=== PATIENT | female | born 1965 | race Two or more races ===

== ENCOUNTER 2019-12-23 08:44 | Emergency (ER) | payer OTHER ==
[2019-12-23] MEDS ORDERED: ONDANSETRON 4 MG/2 ML VIAL IVPUSH ONE (08:46)
[2019-12-23] MEDS ORDERED: SODIUM CHLORIDE 1,000 ML IV STA (08:46)
--- NOTE | 2019-12-23 08:49 | PDOC ---
Rapid Medical Evaluation Time Seen by Provider: 12/23/19 08:44 Medical Evaluation: Allergies Allergy/AdvReac Type Severity Reaction Status Date / Time No Known Allergies Allergy Verified 12/23/19 08:46 12/23/19 08:47 CC: weak yesterday, nausea this am followed by dizziness, also c/o tingling in toes, hx hyperparathyroidism, pending sx 02/08, no other complaints Exam: vss Plan: labs, urine, ivf , zofran Discharge Disposition - Diagnosis Dizziness - Referrals - Patient Instructions - Post Discharge Activity
[2019-12-23 08:58] VITALS: BP 153/69; PULSE 61; TEMP 98.3; BMI 23.7
[2019-12-23 09:39] LABS: BASO % 1.1 % (0-2.0); EOS % 2.2 % (0-4.5); HEMATOCRIT 35.1 % (32.4-45.2); HEMOGLOBIN 11.6 GM/dL (10.7-15.3); LYMPH % 35.8 % (8-40); MCH 26.6 pg (25.7-33.7); MCHC 32.9 g/dl (32.0-36.0); MEAN CELL VOLUME 80.8 fl (80-96); MEAN PLT VOLUME 8.8 fl (7.5-11.1); NEUT % 51.9 % (42.8-82.8); PLATELET COUNT 250 K/MM3 (134-434); RBC 4.35 M/mm3 (3.60-5.2); RDW 14.8 % (11.6-15.6); WHITE BLOOD COUNT 5.2 K/mm3 (4.0-10.0)
--- NOTE | 2019-12-23 09:49 | PDOC ---
History of Present Illness - General Chief Complaint: Lightheaded Stated Complaint: LIGHTHEADED Time Seen by Provider: 12/23/19 08:44 History Source: Patient, Old Records Exam Limitations: No Limitations - History of Present Illness Initial Comments: 12/23/19 09:43 Norma Lemus is a 54F with PMH hyperparathyroidism with presenting with one day of malaise, nausea, lightheadededness. Yesterday felt fatigued but able to work, felt cold despite hot weather, poor appetite but ate dinner. Today woke up, felt nauseated without vomiting, unable to eat breakfast, one loose BM, went to work but felt progressively more lightheaded described as coming close to passing out accompanied by diaphoresis, came to ED for further evaluation. Also complains of tingling sensation to tops of both feet, denies incontinence, able to walk, no lower back pain or trauma. Denies fever chest pain, SOB, syncope, abd pain, dizziness, vision changes, urinary sx. No cardiac history. 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 COVID-19 infection August 2019, has +Ab. PMH high PTH and high Ca, oseteopenia, planned parathyroidectomy 02/09/20 PSH tubal ligation NKDA No meds taken, took Valtrex for herpes infection but last taken August 2019 Denies alcohol, drugs, smoking. Past History - Medical History Allergies/Adverse Reactions: Allergies Allergy/AdvReac Type Severity Reaction Status Date / Time No Known Allergies Allergy Verified 12/23/19 08:46 Home Medications: Ambulatory Orders Multivit with Calcium,Iron,Min [Women's Daily Formula] 1 each PO HS 04/03/12 Valacyclovir HCl [Valtrex -] 500 mg PO HS 04/03/12 Anemia: No Asthma: No Cancer: No Cardiac Disorders: No CVA: No COPD: No CHF: No Dementia: No Diabetes: No GI Disorders: No Disorders: No HTN: No Hypercholesterolemia: No Liver Disease: No Seizures: No Thyroid Disease: Yes (hyper) - Surgical History Abdominal Surgery: No Appendectomy: No Cardiac Surgery: No Cholecystectomy: No Lung Surgery: No Neurologic Surgery: No Orthopedic Surgery: No - Psycho-Social/Smoking History Smoking History: Never smoked Have you smoked in the past 12 months: No - Substance Abuse Hx (Audit-C & DAST Scrn) How often the patient has a drink containing alcohol: Never Score: In Men: 4 or > Positive; In Women: 3 or > Positive: 0 Screen Result (Pos requires Nsg. Audit-10AR): Negative In the last yr the pt used illegal drug/Rx for NonMed reason: No Score: Yes response is considered Positive: 0 Screen Result (Positive result requires Nsg. DAST-10): Negative Review of Systems - Review of Systems Able to Perform ROS?: Yes Constitutional: Yes: Diaphoresis, Malaise. No: Chills, Fever HEENTM: Yes: Blurred Vision. No: Double Vision, Hearing Loss, Throat Pain, Throat Swelling, Difficulty Swallowing Respiratory: No: Cough, Shortness of Breath, SOB with Exertion, SOB at Rest, Productive cough Cardiac (ROS): Yes: Lightheadedness. No: Chest Pain, Edema, Irregular Heart Rate, Palpitations, Syncope ABD/GI: Yes: Nausea, Poor Appetite, Poor Fluid Intake. No: Constipated, Diarrhea, Vomiting : No: Symptoms Reported Musculoskeletal: No: Symptoms Reported Integumentary: No: Symptoms Reported Neurological: Yes: Tingling (feet) Endocrine: Yes: Intolerance to Cold Hematologic/Lymphatic: No: Symptoms Reported All Other Systems: Reviewed and Negative *Physical Exam - Vital Signs Last Vital Signs Temp Pulse Resp BP Pulse Ox 98.3 F 61 18 153/69 100 12/23/19 08:47 12/23/19 08:47 12/23/19 08:47 12/23/19 08:47 12/23/19 08:47 - Physical Exam General Appearance: Yes: Nourished, Appropriately Dressed. No: Apparent Distress HEENT: positive: EOMI, HOLLIE, Normal Voice, Symmetrical, Pharynx Normal, Hearing Grossly Normal. negative: Scleral Icterus (R), Scleral Icterus (L), Pharyngeal Erythema, Tonsillar Exudate, Tonsillar Erythema, Nasal Congestion, Hearing Decreased Neck: positive: Trachea midline, Normal Thyroid. negative: Tender, Rigid, Lymphadenopathy (R), Lymphadenopathy (L), Rigidity, Tender lateral, Tender midline Respiratory/Chest: positive: Lungs Clear, Normal Breath Sounds. negative: Chest Tender, Respiratory Distress, Accessory Muscle Use, Decreased Breath Sounds, Crackles, Rales, Rhonchi, Stridor, Wheezing Cardiovascular: positive: Regular Rhythm, Regular Rate. negative: Murmur Gastrointestinal/Abdominal: positive: Normal Bowel Sounds, Flat, Soft. neg ative: Tender Musculoskeletal: positive: Normal Inspection. negative: CVA Tenderness, Decreased Range of Motion Extremity: positive: Normal Capillary Refill, Normal Inspection, Normal Range of Motion, Pelvis Stable. 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 negative: Numbness, Sensory Deficit ED Treatment Course - LABORATORY CBC & Chemistry Diagram: 12/23/19 09:07 12/23/19 09:07 - ADDITIONAL ORDERS Additional order review: 12/23/19 09:07 RBC 4.35 MCV 80.8 MCHC 32.9 RDW 14.8 MPV 8.8 Neutrophils % 51.9 Lymphocytes % 35.8 D Monocytes % 9.0 Eosinophils % 2.2 Basophils % 1.1 - Medications Given in the ED: ED Medications Discontinued Medications Generic Name Dose Route Start Last Admin Trade Name Freq PRN Reason Stop Dose Admin Ondansetron HCl 4 mg 12/23/19 08:46 12/23/19 09:38 Zofran Injection IVPUSH 12/23/19 08:47 4 mg ONCE ONE Administration Medical Decision Making - Medical Decision Making 12/23/19 09:52 Patient has history of hyperparathyroidism presents with acute onset nausea without vomiting and lightheadedness with associated cold intolerance and foot tingling, concerned for possible electrolyte disturbance vs. hypothyroidism vs. gastroenteritis vs. viral URI, less suspicious for neurological pathology given normal neuro exam and lack of vertigo, no suspicious cardiac issues. Evaluating with CMP, CBC, TSH, PTH, UA, ECG, giving IVF and Zofran for nausea. 12/23/19 11:45 ECG shows NSR with W[place] 166, QRS 84, no LOAN/D or concerning TWI. Labs remarkable for: - CBC WNL - CMP WNL - UA WNL - TSH WNL Patient felt much better after IVF and Zofran, symptoms resolved. Likely has viral infection causing dehydration. VSS. Stable for discharge home with PMD f/u. Discharge - Discharge Information Problems reviewed: Yes Clinical Impression/Diagnosis: Dizziness, Nausea Condition: Improved Disposition: HOME - Follow up/Referral Referrals: Radames Contreras MD [Primary Care Provider] - - Patient Discharge Instructions Patient Printed Discharge Instructions: DI for Viral Gastroenteritis -- Adult Additional Instructions: Today you were evaluated for lightheadedness and nausea. Your labs all look normal, and you felt better after some IV fluids and Zofran. To home, please try to stay hydrated and rest, and your symptoms should resolve in the next week. Please se your primary doctor in the next week for further care. If you experience any worsening nausea, dizziness, difficulty breathing, abdominal pain, or any other new or concerning symptoms, please return to the emergency room. - Post Discharge Activity Work/Back to School Note: Back to Work
--- NOTE | 2019-12-23 10:25 | PDOC ---
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 no other complaints. tolerating liquids but decreased diet since yesterday. mild OSPINA, no vision change/speech change. no cp/sob. no focal weakness. no abdominal pain. - Physicial Exam PE: 12/23/19 10:23 vss alert, well appearing. feels better after lying down perrl, eomi neck supple, no palpable neck mass heart regular, abd benign neuro normal and nonfocal - Medical Decision Making 12/23/19 10:24 54y/o F h/o hyperparathyroidism p/w episode of nausea/light-headedness this morning, HD stable here with no other red flags on hx or exam. ? orthostatic/vagal episode, r/o hypercalcemia or electrolyte abnormality. labs ekg ivf, anti-emetic reassess 12/23/19 12:02 labs wnl. pth pending. feels much better after iv fluids and po intake. ambulating, agrees with d/c plan. Heart Score/ECG Review #1 ECG reviewed & interpreted by me at: 08:59 General ECG Interpretation: Sinus Rhythm, Normal Rate (62), Normal Intervals (qtc 399), No acute ischemic changes Discharge - Discharge Information Problems reviewed: Yes Clinical Impression/Diagnosis: Dizziness, Nausea Condition: Improved Disposition: HOME - Follow up/Referral Referrals: Radames Contreras MD [Primary Care Provider] - - Patient Discharge Instructions Patient Printed Discharge Instructions: DI for Viral Gastroenteritis -- Adult Additional Instructions: Today you were evaluated for lightheadedness and nausea. Your labs all look normal, and you felt better after some IV fluids and Zofran. To home, please try to stay hydrated and rest, and your symptoms should resolve in the next week. Please se your primary doctor in the next week for further care. If you experience any worsening nausea, dizziness, difficulty breathing, abdominal pain, or any other new or concerning symptoms, please return to the emergency room. - Post Discharge Activity Work/Back to School Note: Back to Work
[2019-12-23 10:55] LABS: URINE APPEARANCE CLEAR; URINE BILIRUBIN NEGATIVE (NEGATIVE); URINE COLOR YELLOW; URINE GLUCOSE (UA) NEGATIVE (NEGATIVE); URINE KETONE NEGATIVE (NEGATIVE); URINE LEUK ESTERASE NEGATIVE (NEGATIVE); URINE NITRITE NEGATIVE (NEGATIVE); URINE PROTEIN NEGATIVE (NEGATIVE); URINE UROBILINOGEN 0.2 mg/dL (0.2-1.0)
[2019-12-23 11:15] LABS: ALBUMIN 3.6 g/dl (3.4-5.0); BILIRUBIN,TOTAL 0.2 mg/dL (0.2-1); BLOOD UREA NITROGEN 14.2 mg/dL (7-18); CALCIUM 9.8 mg/dL (8.5-10.1); CREATININE 0.8 mg/dL (0.55-1.3); MAGNESIUM 2.3 mg/dL (1.8-2.4); TOT PROT 7.1 g/dl (6.4-8.2)
--- NOTE | 2019-12-23 11:17 | EKG ---
Test Reason : Blood Pressure : / mmHG Vent. Rate : 062 BPM Atrial Rate : 062 BPM P-R Int : 166 ms QRS Dur : 084 ms QT Int : 394 ms P-R-T Axes : 050 048 052 degrees QTc Int : 399 ms NORMAL SINUS RHYTHM T WAVE ABNORMALITY, CONSIDER ANTERIOR ISCHEMIA ABNORMAL ECG NO PREVIOUS ECGS AVAILABLE Confirmed by MD BRIAN, RUKHSANA ([id number]) on 12/23/2019 11:17:17 AM Referred By: Confirmed By:RUKHSANA TORRES MD
== END 2019-12-23 12:12 | disposition home or self-care (01) ==
LOC: JER 08:44
PROC: 3E033NZ Introduction of Analgesics, Hypnotics, Sedatives into Peripheral Vein, Percutaneous Approach (ICD-10-PCS; principal; 2019-12-23)
PROC: 3E0337Z Introduction of Electrolytic and Water Balance Substance into Peripheral Vein, Percutaneous Approach (ICD-10-PCS; 2019-12-23)
DX: R42 Dizziness and giddiness (principal); R11.0 Nausea
CPT/HCPCS: 36415; 80053; 81003; 83735; 83970; 84443; 85025; 93005; 93010; 99285-25

== ENCOUNTER 2021-11-15 11:56 | Emergency (ER) | payer BC ==
[2021-11-15 12:05] VITALS: BP 120/74; PULSE 70; TEMP 98.6; BMI 24.7
== END 2021-11-15 19:21 | disposition home or self-care (01) ==
LOC: JERFT 11:56
DX: S69.91XA Unspecified injury of right wrist, hand and finger(s), initial encounter (principal); W57.XXXA Bitten or stung by nonvenomous insect and other nonvenomous arthropods, initial encounter
CPT/HCPCS: 73130-TC-RT-FY; 99283-25

== ENCOUNTER 2021-12-27 05:03 | Day surgery (SDC) | payer BC ==
[2021-12-21 11:06] VITALS: BMI 30.4
[2021-12-27 14:18] VITALS: BP 127/71; PULSE 53; TEMP 98
== END 2021-12-27 14:20 | disposition home or self-care (01) ==
LOC: JASU-ENDO 05:03
PROVIDERS: ATTEND Internal Medicine Gastroenterology
PROC: 0DB78ZX Excision of Stomach, Pylorus, Via Natural or Artificial Opening Endoscopic, Diagnostic (ICD-10-PCS; 2021-12-27)
PROC: 0DJD8ZZ Inspection of Lower Intestinal Tract, Via Natural or Artificial Opening Endoscopic (ICD-10-PCS; 2021-12-27)
PROC: 0DB98ZX Excision of Duodenum, Via Natural or Artificial Opening Endoscopic, Diagnostic (ICD-10-PCS; principal; 2021-12-27 11:00)
DX: K57.30 Diverticulosis of large intestine without perforation or abscess without bleeding (principal); K64.8 Other hemorrhoids; I89.0 Lymphedema, not elsewhere classified; K29.50 Unspecified chronic gastritis without bleeding
CPT/HCPCS: 88305-TC; 88312-TC; 88313-TC; 88342-TC

== ENCOUNTER 2022-03-13 08:31 | Emergency (ER) | payer BC ==
[2022-03-13] MEDS ORDERED: IBUPROFEN 400 MG TABLET (FP) PO ONE ×2 (08:57→08:58)
[2022-03-13 09:01] VITALS: BP 105/72; PULSE 63; RESP 18; TEMP 98.4; BMI 25.0
== END 2022-03-13 09:25 | disposition home or self-care (01) ==
LOC: JERFT 08:31 → JER 08:31 → JERFT 09:25
DX: J02.9 Acute pharyngitis, unspecified (principal)
CPT/HCPCS: 99283-25